=== PATIENT | female | born 1975 | race Caucasian/White ===

== ENCOUNTER 2024-10-01 11:40 | Emergency (ER) | payer OTHER, SELFPAY ==
--- NOTE | ~2024-10-01 | XR_ITS ---
XR ribs RT 2V w CXR 2V Ordering provider: Jose Rivera MD History: . pain/trauma, right posterior radiating anteriorly lower rib . Comparison: None. FINDINGS: BONES: No acute rib fracture. MEDIASTINUM: The cardiac silhouette is not enlarged. LUNGS: No infiltrates, effusions or pneumothorax. OTHER: No free air under the diaphragm. IMPRESSION: 1. No right rib fracture. 2. No acute cardiopulmonary findings. Reviewed, dictated and finalized at location A.
[2024-10-01 11:43] VITALS: BP 130/71; PULSE 71; RESP 16; TEMP 36.4; O2SAT 100
--- NOTE | 2024-10-01 12:29 | PC.NURSE ---
Patient denies SOB. patient states she feels tightness and sore in the middle of her back.
[2024-10-01] MEDS: KETOROLAC (*BKC) 60 MG/2 ML VIAL IM (13:10)
--- NOTE | 2024-10-01 13:54 | ED.GENADULT ---
HPI - General Adult General Chief complaint: Unspecified Stated complaint: Poss right rib injury-thrown from horse Time Seen by Provider: 10/01/24 12:44 History of Present Illness HPI narrative: Patient is a 48-year-old female who presents ER with right posterior chest wall pain extending around the lateral aspect. Was thrown off of a horse yesterday. Landed on her back. No difficulty breathing. Has had increased pain over last day. Has some achiness going into her right neck but has normal range of motion. No numbness or tingling in the arms or legs. She was wearing helmet when she was thrown and did not lose consciousness. Has taken some ibuprofen with only mild improvement. No difficulty breathing. Related Data Allergies Allergy/AdvReac Type Severity Reaction Status Date / Time Sulfa (Sulfonamide Allergy Severe Hives Verified 10/01/24 11:42 Antibiotics) Review of Systems Review of Systems: All systems reviewed & are unremarkable except as noted in HPI and below Constitutional: Constitutional: Reports no additional constitutional complaints Cardiovascular: Cardiovascular: Reports no additional cardiovascular complaints Respiratory: Respiratory: Reports no additional respiratory complaints Gastrointestinal: Gastrointestinal: Reports no additional gastrointestinal complaints Musculoskeletal: Musculoskeletal: Reports no additional musculoskeletal complaints Neurologic: Reports system reviewed and no additional complaints, except as documented PMFSH Past Medical History Medical History (Updated 10/01/24 @ 13:58 by Jose Rivera MD) Healthy female adult Exam Narrative: GENERAL: Well-appearing, well-nourished, and in no acute distress. HEAD: Normocephalic, atraumatic. ENT: Mucous membranes moist. NECK: Supple. Full range of motion without midline tenderness. Mild discomfort into the trapezius musculature bilaterally. CHEST: Clear to auscultation. No respiratory distress. Mild discomfort right inferior lateral chest wall without bruising crepitus. HEART: Regular rate and rhythm. Normal peripheral pulses. EXTREMITIES: Normal range of motion. No edema. SKIN: Warm, dry, no rash. NEURO: Alert and oriented x3. PSYCH: Normal mood and affect. Course Course Emergency Course: Patient resting comfortably. No fracture or pneumothorax. Toradol for pain. Appropriate for discharge home. Vital Signs Vital signs: Vital Signs Temperature 97.6 F 10/01/24 11:43 Pulse Rate 71 10/01/24 11:43 Respiratory Rate 16 10/01/24 11:43 Blood Pressure 130/71 05/22/25 11:43 Pulse Oximetry 100 10/01/24 11:43 Oxygen Delivery Room Air 10/01/24 11:43 Temperature 97.6 F 10/01/24 11:43 Pulse Rate 71 10/01/24 11:43 Respiratory Rate 16 10/01/24 11:43 Blood Pressure 130/71 10/01/24 11:43 Pulse Oximetry 100 10/01/24 11:43 Oxygen Delivery Room Air 10/01/24 11:43 Medical Decision Making Vital Signs Vital Signs: Vital Signs Temperature 97.6 F 10/01/24 11:43 Pulse Rate 71 10/01/24 11:43 Respiratory Rate 16 10/01/24 11:43 Blood Pressure 130/71 10/01/24 11:43 Pulse Oximetry 100 10/01/24 11:43 Oxygen Delivery Room Air 10/01/24 11:43 Temperature 97.6 F 10/01/24 11:43 Pulse Rate 71 10/01/24 11:43 Respiratory Rate 16 10/01/24 11:43 Blood Pressure 130/71 10/01/24 11:43 Pulse Oximetry 10/01/24 11:43 Oxygen Delivery Room Air 10/01/24 11:43 Imaging Data Radiologist's impression: ITS Impressions Ribs w/Chest X-Ray 10/01/24 13:50 IMPRESSION: 1. No right rib fracture. 2. No acute cardiopulmonary findings. Discharge Plan Discharge Clinical Impression: Chest wall pain Patient Disposition: Home Condition: Stable Instructions: Chest Wall Pain (ED) Additional Instructions: Return ER if you cannot breathe, you can not swallow, you have worsening pain, you develop new weakness or numbness in in arm or leg, or you have additional concerns. Patient Language: Irish Prescriptions: New cyclobenzaprine 10 mg tablet 10 mg PO TID PRN (Reason: muscle spasm) Qty: 20 0RF naproxen 375 mg tablet 375 mg PO BID Qty: 14 0RF Follow-up/Referrals: PHYSICIAN NOT ON STAFF,NONSTAFF [Primary Care Provider] - 1 Week
--- OUTSIDE RECORDS SUMMARY | 2024-10-01 14:12 | XMS_ITS | Referral Summary ---
Author Organization [facility] Address [address] [place] [address] Care Team Providers Care Hiv Counselor Name Role Phone Aleida Romero DO Primary Care Provider Jj Dozier MD Unavailable Allergies Active Allergy Reactions Criticality Noted Date Comments Sulfa Hives Medium 08/27/2023 Medications ibuprofen 200 mg tab/cap Take 1 tablet/capsule (200 mg total) by mouth every 6 (six) hours as needed for pain Active naproxen sodium 220 mg capsule Take 220 mg by mouth every 12 (twelve) hours as needed Active gabapentin (NEURONTIN) 100 mg capsuleIndicati ons:Neuropathic Pain Take 2 capsules (200 mg total) by mouth every 8 (eight) hours 180 capsule 2 Active Additional Information Patient not taking.Reported on 09/11/2023 Social History Tobacco Use Types Packs/Day Years Used Date Smoking Tobacco: Never Tobacco Cessation:Counseling Given: Not Answered AUDIT-C Answer Date Recorded Q1: How often do you have a drink containing alc ohol? 2-4 times a month 08/28/2023 Q2: How many drinks containi ng alcohol do you have on a typical day when you are drinking? 1 or 2 08/28/2023 Q3: How often do you have si x or more drinks on one occasion? 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 [address] [facility] Care Teams Hiv Counselor Relationship Specialty Start Date End Date Aleida Romero DO [address] [facility] [address] [place] [address] PCP - General Family Medicine 07/26/23 jJ Dozier MD [address] [facility], [address] [place] [address] Consulting Physician Pain Management 08/28/23
--- OUTSIDE RECORDS SUMMARY | 2024-10-01 14:12 | XMS_ITS | Clinical Summary ---
Author Organization [facility] Address [address] [place] [address] Care Team Providers Care Gas Welding Machine Operator Name Role Phone Aleida Romero DO Primary [...] Additional Information Patient not taking.Reported on 09/11/2023 Surgical History Surgery Date Site/Laterality Comments TUBAL LIGATION 05/13/2008 - 05/12/2009 TONSILLECTOMY 05/13/1996 - 05/12/1997 NASAL SEPTUM SURGERY 05/13/2000 - 05/12/2001 ANAL FISSURECTOMY 05/13/1997 - 05/12/1998 Medical History Medical History Date Comments Depression Family History Medical History Relation Name Comments Anxiety disorder Brother Chronic Pain Brother Depression Brother Anxiety disorder Father Chronic Pain Father Depression Mother Diabetes Paternal Grandmother Heart disease Paternal Grandmother Hypertension Paternal Grandmother Relation Name Status Comments Brother Father Mother Paternal Grandmother Social History Tobacco Use Types Packs/Day Years [...] on file 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 Gender Identity Not on file Sexual Orientation Not on file Obstetrics History Last Filed Vital Signs Vital Sign Reading [...] 08/27/2023 9:44 AM CDT Plan of Treatment Health Maintenance Due Date Last Done Comments Breast Cancer Screening-Mammogram 1976 Cervical Cancer Screening 1976 Colon Cancer Screening-Colonoscopy 1976 Depression Screening 1976 Hepatitis C Screening 1976 Hepatitis B Screening 1994 Regular Well Visit/Exam 18-64 1994 DTaP/Tdap/Td Vaccine (2 - Td or Tdap) 04/11/2022 04/11/2012 Influenza Vaccine (Season Ended) 2025 Pneumococcal vaccine <65 Aged Out No longer eligible based on patient's age to complete this topic [place] [address] [facility] Care Teams Gas Welding Machine Operator Relationship Specialty Start Date End Date Aleida Romero DO [address] [address] PCP - General Family Medicine 07/26/23 Jj Dozier MD [address] [facility], [facility] [address] [place] [address] Consulting Physician Pain Management 08/28/23
[2024-10-01 14:24] VITALS: BP 109/61; PULSE 68; RESP 16; TEMP 36.6; O2SAT 99
== END 2024-10-01 14:27 | disposition home or self-care (01) ==
LOC: ANHED 14:10
PROVIDERS: Emergency Provider Emergency Medicine
DX: R07.89 Other chest pain (principal); V80.010A Animal-rider injured by fall from or being thrown from horse in noncollision accident, initial encounter; Y93.52 Activity, horseback riding
CPT/HCPCS: 71046; 71100; 96372; 99283; J1885